=== PATIENT | male | born 1955 | race Caucasian/White ===

== ENCOUNTER → 2018-07-05 | Outpatient (CLI) | payer BC, OTHER ==
[~2018-07-05] MED LIST: ASPIR 8181 MG PO; ATORVASTATIN CA40 MG PO; ELMIRON 100 MG100 M1 PO; LANTUS100 UNIT/M SUBQ; METFORMIN HCL500 MG PO; TOPROL XL25 MG
== END ==
LOC: M.ULTRA 07:20
DX: R22.9 Localized swelling, mass and lump, unspecified (principal)